=== PATIENT | female | born 1965 | race Caucasian/White ===

== ENCOUNTER 2017-09-30 05:36 | Inpatient (IN) | payer OTHER ==
[2017-09-29 17:10] VITALS: BMI 49.0
[~2017-09-30] VITALS: Ht 160 cm; Wt 125.8 kg
[2017-09-30] VITALS (29 sets, daily range): BP systolic 105–159; BP diastolic 52–91; PULSE 87–103; RESP 13–21; Ht 160 cm; Wt 125.8 kg
[2017-09-30] MEDS: D5-NS + KCL 20 MEQ 1,000 ML IV SCH ×3 (02:30→18:28)
[2017-09-30] MEDS ORDERED: CEFAZOLIN 2 GM/50 ML (PMX) 50 ML IVPB SCH (06:00)
[2017-09-30] MEDS ORDERED: Metronidazole 500 MG in NS 100 ML IVPB SCH (06:00)
[2017-09-30] MEDS ORDERED: LOSA25TA5 PO (07:00)
[2017-09-30] MEDS ORDERED: PANT40TA4 PO (07:00)
[2017-09-30] MEDS ORDERED: BECL8.7H NASAL (07:00)
[2017-09-30] MEDS ORDERED: DULO60CA6 PO (07:00)
[2017-09-30] MEDS ORDERED: FERR325T5 PO (07:00)
[2017-09-30] MEDS ORDERED: AMIT75TA2 PO (07:00)
[2017-09-30] MEDS ORDERED: GABA300S PO (07:00)
[2017-09-30] MEDS ORDERED: GABA300C16 PO (07:00)
[2017-09-30] MEDS ORDERED: MELO7.5O PO (07:00)
[2017-09-30] MEDS ORDERED: TRAZ300T15 PO (07:00)
[2017-09-30] MEDS ORDERED: ALBU18HF INHALATION (07:00)
[2017-09-30] MEDS ORDERED: METHYLENE BLUE 1% 10 ML INJ ONE (07:02)
[2017-09-30] MEDS ORDERED: THROMBIN 5000 UNIT VIAL ONE (07:02)
[2017-09-30] MEDS ORDERED: VASOPRESSIN 20 UNITS INJ ONE (07:02)
[2017-09-30] MEDS ORDERED: MIDAZOLAM 1 MG/ML 2 ML INJ ONE (08:33)
[2017-09-30] MEDS ORDERED: LIDOCAINE 2% (SDV) 5 ML INJ ONE (08:33)
[2017-09-30] MEDS ORDERED: PROPOFOL 20 ML ONE ×2 (08:33→09:48)
[2017-09-30] MEDS ORDERED: SUCCINYLCHOLINE CHLORIDE 100 MG/5 ML SYG IV ONE (08:34)
[2017-09-30] MEDS ORDERED: FENTAnyl 50 MCG/ML VIAL ONE (08:34)
[2017-09-30] MEDS ORDERED: ROCURONIUM 50 MG INJ ONE ×2 (08:34→09:27)
[2017-09-30] MEDS ORDERED: morphine SULFATE/PF (10 MG/10 ML) INJ ONE (08:36)
[2017-09-30] MEDS ORDERED: metroNIDAZOLE 500 MG/NS (PMX) 100 ML IVPB ONE (08:53)
[2017-09-30] MEDS ORDERED: CEFAZOLIN 1 GM INJ ONE (08:53)
[2017-09-30] MEDS ORDERED: PHENYLephrine (100 MCG/ML) 5ML SYG ONE (09:00)
[2017-09-30] MEDS ORDERED: ONDANSETRON 4 MG INJ ONE ×2 (09:26→12:38)
[2017-09-30] MEDS ORDERED: DEXAMETHASONE 4 MG/ML 1 ML INJ ONE (09:26)
[2017-09-30] MEDS ORDERED: FAMOTIDINE 20 MG INJ ONE (09:26)
[2017-09-30] MEDS ORDERED: EPHEDrine SULFATE 50 MG/5 ML SYG ONE (09:48)
[2017-09-30] MEDS ORDERED: GLYCOPYRROLATE 0.4 MG INJ ONE (11:38)
[2017-09-30] MEDS ORDERED: NEOSTIGMINE 3 MG/3 ML SYRINGE ONE ×2 (11:38→11:42)
[2017-09-30] MEDS ORDERED: PROCHLORPERAZINE 10 MG INJ IV PRN (12:30)
[2017-09-30] MEDS ORDERED: MEPERIDINE 25 MG INJ IV PRN (12:30)
[2017-09-30] MEDS ORDERED: HYDROmorphONE (0.2 MG/ML) 10ML SYG IV PRN ×3 (12:30)
[2017-09-30] MEDS ORDERED: NALBUPHINE HCL (10 MG/1 ML) INJ IV PRN (12:30)
[2017-09-30] MEDS ORDERED: FENTAnyl 50 MCG/ML VIAL IV PRN (12:30)
[2017-09-30] MEDS ORDERED: CEFAZOLIN 1 GM in SOD CHLORIDE 0.9% 100 ML IVPB SCH (12:30)
[2017-09-30] MEDS ORDERED: NALOXONE (0.4 MG/ML) INJ IV PRN (12:30)
[2017-09-30] MEDS ORDERED: hydrALAzine 20 MG INJ IV PRN ×2 (12:30→14:30)
[2017-09-30] MEDS ORDERED: LABETALOL HCL 20MG INJ IV PRN (12:30)
[2017-09-30] MEDS ORDERED: HYDROmorphONE 0.5 MG/0.5 ML SYG IV PRN (12:30)
[2017-09-30] MEDS ORDERED: ONDANSETRON 4 MG INJ IV PRN ×2 (12:30)
[2017-09-30] MEDS ORDERED: DIPHENHYDRAMINE 50 MG INJ IV PRN ×3 (12:30→21:00)
--- NOTE | 2017-09-30 12:31 | HPN ---
Date/Time of Note Date/Time of Note DATE: 09/30/17 TIME: 12:31 Interval H&P Admission Note Pt. seen H&P reviewed: No system changes PEYTON GOMEZ MD Sep 30, 2017 12:31
--- NOTE | 2017-09-30 12:34 | SIPON ---
Date/Time of Note Date/Time of Note DATE: 09/30/17 TIME: 12:31 Operative Report Preoperative Diagnosis adnexal mass and fibroids Postoperative Diagnosis same path pending Operation/Procedure Performed supracervical hyst BSO UD and morcellation Surgeon see signature line financial services assistant DUSTIN Scott Anesthesia: other Estimated blood loss: 10 - 50 ml's Transfusion Required none Specimen multiple Grafts/Implants none Complications none PEYTON GOMEZ MD Sep 30, 2017 12:34
--- NOTE | 2017-09-30 12:34 | SIPON ---
Date/Time of Note Date/Time of Note DATE: 09/30/17 TIME: 12:31 Operative Report Preoperative Diagnosis adnexal mass and fibroids Postoperative Diagnosis same path pending Operation/Procedure Performed supracervical hyst BSO UD and morcellation Surgeon see signature line ice cream freezer assistant DUSTIN Scott Anesthesia: other Estimated blood loss: 10 - 50 ml's Transfusion Required none Specimen multiple Grafts/Implants none Complications none PEYTON GOMEZ MD Sep 30, 2017 12:34
--- NOTE | 2017-09-30 12:34 | SIPON ---
Date/Time of Note Date/Time of Note DATE: 09/30/17 TIME: 12:31 Operative Report Preoperative Diagnosis adnexal mass and fibroids Postoperative Diagnosis same path pending Operation/Procedure Performed supracervical hyst BSO UD and morcellation Surgeon see signature line psychiatric technician assistant DUSTIN Scott Anesthesia: other Estimated blood loss: 10 - 50 ml's Transfusion Required none Specimen multiple Grafts/Implants none Complications none PEYTON GOMEZ MD Sep 30, 2017 12:34
[2017-09-30] MEDS ORDERED: MEPERIDINE 25 MG INJ ONE (12:38)
[2017-09-30] MEDS ORDERED: HYDROmorphONE (0.2 MG/ML) 10ML SYG IV ONE (12:38)
[2017-09-30] MEDS: metroNIDAZOLE 500 MG/NS (PMX) 100 ML IVPB SCH ×2 (14:14→22:03)
[2017-09-30] MEDS: CEFAZOLIN 1 GM/50 ML (PMX) 50 ML IVPB SCH ×2 (14:14→21:19)
[2017-09-30] MEDS: HYDROmorphONE 0.5 MG/0.5 ML SYG IV PRN ×2 (14:53→17:02)
[2017-09-30] MEDS: ALBUTEROL HFA 8 GM INHALER INH SCH ×2 (15:30→21:17)
[2017-09-30] MEDS: POTASSIUM CHLORIDE 10 MEQ in LACTATED RINGER'S 1,000 ML IV SCH (18:11)
[2017-09-30] MEDS: AMITRIPTYLINE 25 MG TAB PO SCH (21:18)
[2017-09-30] MEDS: FAMOTIDINE 20 MG INJ IV SCH (21:18)
[2017-09-30] MEDS: GABAPENTIN 300 MG CAP PO SCH (21:18)
[2017-09-30] MEDS: oxyCODONE 5 MG TAB PO PRN (21:35)
--- NOTE | 2017-09-30 23:21 | HP ---
DATE OF ADMISSION: 09/30/2017 CHIEF COMPLAINT AND HISTORY OF PRESENT ILLNESS: The patient is a 52-year-old female with a history of hypertension, asthma, anxiety and depression. The patient is also morbidly obese. The patient w as seen by Dr. Waters as an outpatient for a pelvic mass. [facility] and underwent a supracervical hysterectomy, bilateral salpingo-oophorectomy and ureteral d issection. The patient, prior to admission, was seen by Dr. Richardson from cardiovascular standpoint and underwent cardiac clearance. The patient's preop evaluation by Dr. Waters indicated that the patient has a gradually increasing pelvic mass which was complex and 4 to 5 cm on the left side and also was noted to have a fibroid with associated lower abdominal pain. The patient denies any chest pain. No shortness of breath. No history of headache. No history of nausea or vomiting. No hist ory of any focal weakness. Other than postoperative pain, the rest of the review of systems are unr emarkable. No recent asthma exacerbation. ALLERGIES: THE PATIENT REPORTED THAT TYLENOL DOES NOT HELP AND IF SHE TAKES NORCO, SHE DOES GET ITC HY WHICH GETS BETTER WITH BENADRYL. THE PATIENT STATES THAT SHE HAS TAKEN OXYCODONE IN THE PAST WIT HOUT ANY REACTION OR SIDE EFFECT. THE PATIENT STATES THAT SHE IS NOT ALLERGIC TO TYLENOL. IT IS JU ST THAT IT IS NOT EFFECTIVE FOR PAIN. PAST SURGICAL HISTORY: The patient is status post x2, status post D and C and appendectom y. SOCIAL HISTORY: No smoking, no alcohol. FAMILY HISTORY: The patient's mother of uterine cancer. MENSTRUAL HISTORY: The patient is postmenopausal. There is no history of postmenopausal bleed. PHYSICAL EXAMINATION: GENERAL: The patient is conscious, awake, alert. VITAL SIGNS: Temperature 98.1, pulse 57, respirations 18, blood pressure 133/59, O2 saturation 98% on 4 liters. HEENT: No eye discharge or redness. Nose and ears normal. Oropharynx clear. NECK: No mass. CHEST: Fairly clear. CARDIOVASCULAR: S1, S2 normal. No murmur. ABDOMEN: The patient is status post recent surgery. EXTREMITIES: No edema. Pedal pulses palpable. SKIN: Without acute rash. NEUROLOGIC: The patient is awake, alert, fairly oriented. LABORATORIES: Labs prior to admission: Urine test negative. Sodium 141, potassium 3.7, BUN 10, creatinine 0.8, glucose 161. Coagulation profile unremarkable. UA unremarkable. WBC 10.4, hemoglobin 12.8, platelets 303. CA 127 is 9. IMPRESSION AND PLAN: 1. Pelvic mass and uterine fibroid, status post supracervical hysterectomy, bilateral salpingo-ooph orectomy and ureteral dissection. Continue postoperative care as per Dr. Waters. 2. Hypertension. Will resume Cozaar. 3. Anxiety and depression. Continue Cymbalta and Elavil. 4. Asthma, stable. Continue Proventil twice a day. 5. The patient also takes Neurontin which she says helps her muscle pain. 6. Will continue to follow her from a medical standpoint. Dictated By: DALY RAMIREZ/CAROLINE Conf#: [id number] DID#: [id number]
[2017-10-01] MEDS: POTASSIUM CHLORIDE 10 MEQ in LACTATED RINGER'S 1,000 ML IV SCH ×3 (01:03→18:26)
[2017-10-01] MEDS: oxyCODONE 5 MG TAB PO PRN ×4 (02:23→16:25)
[2017-10-01] MEDS: CEFAZOLIN 1 GM/50 ML (PMX) 50 ML IVPB SCH (06:40)
[2017-10-01] MEDS: metroNIDAZOLE 500 MG/NS (PMX) 100 ML IVPB SCH (06:40)
[2017-10-01 07:00] VITALS: BP 116/57; RESP 18
[2017-10-01] MEDS: PANTOPRAZOLE (EC) 40 MG TAB PO SCH (07:45)
[2017-10-01] MEDS: GABAPENTIN 300 MG CAP PO SCH ×2 (08:39→20:15)
[2017-10-01] MEDS: DULOXETINE 30 MG CAP DR PO SCH (08:39)
[2017-10-01] MEDS: LOSARTAN 25 MG TAB PO SCH (08:39)
[2017-10-01] MEDS: ALBUTEROL HFA 8 GM INHALER INH SCH ×2 (08:39→20:20)
[2017-10-01] MEDS: FAMOTIDINE 20 MG INJ IV SCH (08:39)
[2017-10-01] MEDS ORDERED: BECLOMETHASONE DIPROPIONATE NASAL SCH (09:00)
[2017-10-01] MEDS: KETOROLAC 30 MG INJ IV PRN ×2 (13:33→22:15)
[2017-10-01 14:00] VITALS: BP 138/94; RESP 18
--- NOTE | 2017-10-01 18:10 | PN ---
Date/Time of Note Date/Time of Note DATE: 10/01/17 TIME: 18:06 Assessment/Plan VTE Prophylaxis VTE Prophylaxis Intervention: SCD's Lines/Catheters IV Catheter Type (from Nrs): Peripheral IV Urinary Cath still in place: Yes Reason Cath still needed: urinary retention Assessment/Plan Chief Complaint/Hosp Course Patient's complaints of abdominal pain, current medication last only for a couple of hours, Andrea catheter DC patient is able to void Problems: Assessment/Plan - Pelvic mass and uterine fibroid, status post supracervical hysterectomy, bilateral salpingo-oophorectomy and ureteral dissection. Continue postoperative care as per Dr. Waters. - Hypertension. She is currently normotensive - Anxiety and depression. Continue Cymbalta and Elavil. - Asthma, stable. Continue Proventil twice a day. - Obesity with BMI of 49 Further recommendations based on clinical course. Plan of care discussed with Dr. Garcia. Exam/Review of Systems Vital Signs Vitals Vital Signs Date Time Temp Pulse Resp B/P Pulse Ox O2 Delivery O2 Flow Rate FiO2 10/01/17 14:00 98.2 93 18 138/94 100 09/30/17 20:00 Nasal Cannula 4.0 Intake and Output 09/30/17 09/30/17 10/01/17 15:00 23:00 07:00 Intake Total 2850 ml 350 ml 1300 ml Output Total 225 ml 200 ml 850 ml Balance 2625 ml 150 ml 450 ml Exam Constitutional: alert, obese Head: normocephalic Neck: supple Respiratory: normal air movement Cardiovascular: nl pulses Gastrointestinal: other (Status post surgery), soft Extremities: normal pulses Results Result Diagram: 10/01/17 0431 10/01/17 0431 Results 24 hrs Laboratory Tests Test 10/01/17 04:31 White Blood Count 10.2 Red Blood Count 3.97 L Hemoglobin 10.1 L Hematocrit 34.5 L Mean Corpuscular Volume 86.9 Mean Corpuscular Hemoglobin 25.4 L Mean Corpuscular Hemoglobin Concent 29.3 L Red Cell Distribution Width 15.0 H Platelet Count 276 Mean Platelet Volume 9.5 Neutrophils % 70.4 Lymphocytes % 19.7 Monocytes % 8.2 Eosinophils % 1.1 Basophils % 0.2 Nucleated Red Blood Cells % 0.0 Neutrophils # 7.2 Lymphocytes # 2.0 Monocytes # 0.8 Eosinophils # 0.1 Basophils # 0.0 Nucleated Red Blood Cells # 0.0 Prothrombin Time 13.9 Prothrombin Time Ratio 1.1 INR International Normalized Ratio 1.07 Sodium Level 142 Potassium Level 4.7 Chloride Level 101 Carbon Dioxide Level 32 H Anion Gap 14 Blood Urea Nitrogen 10 Creatinine 0.78 Glucose Level 106 # Calcium Level 8.0 L Medications Medications Current Medications Potassium Chloride/Dextrose/ Sod Cl (D5-NS + KCl 20 Meq) 1,000 ml @ 100 mls/hr Q10H IV ; Start 09/29/17 at 16:30; Status Future Hold Ondansetron HCl 4 mg 4 mg Q6H PRN IV NAUSEA AND/OR VOMITING; Start 09/30/17 at 12:30 Potassium Chloride/Lactated Ringer's (KCl/Lr) 1,005 ml @ 100 mls/hr Q10H3M IV Last administered on 10/01/17 05:17; Admin Dose 100 MLS/HR; Start 09/30/17 at 15:00 Albuterol (Ventolin Hfa) 2 puff BID INH Last administered on 10/01/17 08:39; Admin Dose 2 PUFF; Start 09/30/17 at 15:30 Amitriptyline HCl (Elavil) 75 mg QHS PO Last administered on 09/30/17 21:18; Admin Dose 75 MG; Start 09/30/17 at 21:00 Duloxetine HCl (Cymbalta) 60 mg DAILY PO Last administered on 10/01/17 08:39; Admin Dose 60 MG; Start 10/01/17 at 09:00 Gabapentin (Neurontin) 300 mg BID PO Last administered on 10/01/17 08:39; Admin Dose 300 MG; Start 09/30/17 at 21:00 Losartan Potassium (Cozaar) 25 mg DAILY PO Last administered on 10/01/17 08:39 ; Admin Dose 25 MG; Start 10/01/17 at 09:00 Hydralazine HCl (Apresoline) 10 mg Q4H PRN IV SBP>160, DBP>95; Start 09/30/17 at 14:30 Oxycodone HCl (Roxicodone) 10 mg Q4H PRN PO PAIN Last administered on 16:25; Admin Dose 10 MG; Start 09/30/17 at 15:00 Diphenhydramine HCl (Benadryl) 25 mg Q6H PRN IV ITCHING Last administered on 21:18; Admin Dose 25 MG; Start 09/30/17 at 21:00 Ketorolac Tromethamine (Toradol) 30 mg Q6H PRN IV PAIN Last administered on 13:33; Admin Dose 30 MG; Start 10/01/17 at 13:30; Stop 10/04/17 at 13:29 HAKEEM LINDSEY Oct 01, 2017 18:10
[2017-10-01] MEDS: morphine 2 MG INJ IV PRN (19:44)
[2017-10-01] MEDS: AMITRIPTYLINE 25 MG TAB PO SCH (20:15)
[2017-10-02] MEDS: morphine 2 MG INJ IV PRN ×3 (02:35→22:51)
[2017-10-02] MEDS: KETOROLAC 30 MG INJ IV PRN ×3 (04:59→20:10)
[2017-10-02] MEDS: PANTOPRAZOLE (EC) 40 MG TAB PO SCH (06:49)
[2017-10-02 07:53] VITALS: BP 167/76; RESP 16
[2017-10-02] MEDS: POTASSIUM CHLORIDE 10 MEQ in LACTATED RINGER'S 1,000 ML IV SCH ×2 (08:00→20:17)
[2017-10-02] MEDS: GABAPENTIN 300 MG CAP PO SCH ×2 (09:01→20:19)
[2017-10-02] MEDS: LOSARTAN 25 MG TAB PO SCH (09:01)
[2017-10-02] MEDS: DULOXETINE 30 MG CAP DR PO SCH (09:01)
[2017-10-02] MEDS: ALBUTEROL HFA 8 GM INHALER INH SCH ×2 (09:04→20:19)
[2017-10-02] MEDS: oxyCODONE 5 MG TAB PO PRN ×2 (09:31→16:55)
[2017-10-02 14:24] VITALS: BP 176/89; RESP 18
--- NOTE | 2017-10-02 16:05 | PN ---
Date/Time of Note Date/Time of Note DATE: 10/02/17 TIME: 15:59 Assessment/Plan VTE Prophylaxis VTE Prophylaxis Intervention: SCD's Lines/Catheters IV Catheter Type (from Nrs): Peripheral IV Urinary Cath still in place: No Assessment/Plan Chief Complaint/Hosp Course menorrhagia and mass Problems: Assessment/Plan A- doing well with recovery P- mobilize and adv diet Subjective 24 Hr Interval Summary Free Text/Dictation + flatus and some pain. Exam/Review of Systems Vital Signs Vitals Vital Signs Date Time Temp Pulse Resp B/P Pulse Ox O2 Delivery O2 Flow Rate FiO2 10/02/17 14:24 97.8 91 18 176/89 99 10/01/17 22:04 Nasal Cannula 2.0 Intake and Output 10/01/17 10/01/17 10/02/17 15:00 23:00 07:00 Intake Total 150 ml 2040 ml 1750 ml Output Total 1400 ml 1350 ml Balance 150 ml 640 ml 400 ml Exam Resp- clear CVS- nsr Abd- soft, very obese and mildly obese Results Result Diagram: 10/02/17 0453 10/02/17 0453 Results 24 hrs Laboratory Tests Test 10/02/17 04:53 White Blood Count 8.0 # Red Blood Count 4.13 L Hemoglobin 10.5 L Hematocrit 36.3 L Mean Corpuscular Volume 87.9 Mean Corpuscular Hemoglobin 25.4 L Mean Corpuscular Hemoglobin Concent 28.9 L Red Cell Distribution Width 15.1 H Platelet Count 270 Mean Platelet Volume 9.7 Neutrophils % 53.0 Lymphocytes % 31.8 Monocytes % 8.5 Eosinophils % 5.8 Basophils % 0.3 Nucleated Red Blood Cells % 0.0 Neutrophils # 4.3 Lymphocytes # 2.5 Monocytes # 0.7 Eosinophils # 0.5 Basophils # 0.0 Nucleated Red Blood Cells # 0.0 Sodium Level 142 Potassium Level 3.9 Chloride Level 98 Carbon Dioxide Level 36 H Anion Gap 12 Blood Urea Nitrogen 6 L Creatinine 0.70 Glucose Level 98 Calcium Level 8.0 L Medications Medications Current Medications Potassium Chloride/Dextrose/ Sod Cl (D5-NS + KCl 20 Meq) 1,000 ml @ 100 mls/hr Q10H IV ; Start 09/29/17 at 16:30; Status Future Hold Ondansetron HCl 4 mg 4 mg Q6H PRN IV NAUSEA AND/OR VOMITING; Start 09/30/17 at 12:30 Potassium Chloride/Lactated Ringer's (KCl/Lr) 1,005 ml @ 50 mls/hr Q20H6M IV Last administered on 10/01/17 18:26; Admin Dose 100 MLS/HR; Start 09/30/17 at 15:00 Albuterol (Ventolin Hfa) 2 puff BID INH Last administered on 10/02/17 09:04; Admin Dose 2 PUFF; Start 09/30/17 at 15:30 Amitriptyline HCl (Elavil) 75 mg QHS PO Last administered on 10/01/17 20:15; Admin Dose 75 MG; Start 09/30/17 at 21:00 Duloxetine HCl (Cymbalta) 60 mg DAILY PO Last administered on 10/02/17 09:01; Admin Dose 60 MG; Start 10/01/17 at 09:00 Gabapentin (Neurontin) 300 mg BID PO Last administered on 10/02/17 09:01; Admin Dose 300 MG; Start 09/30/17 at 21:00 Losartan Potassium (Cozaar) 25 mg DAILY PO Last administered on 10/02/17 09:01 ; Admin Dose 25 MG; Start 10/01/17 at 09:00 Hydralazine HCl (Apresoline) 10 mg Q4H PRN IV SBP>160, DBP>95; Start 09/30/17 at 14:30 Oxycodone HCl (Roxicodone) 10 mg Q4H PRN PO PAIN Last administered on 09:31; Admin Dose 10 MG; Start 09/30/17 at 15:00 Diphenhydramine HCl (Benadryl) 25 mg Q6H PRN IV ITCHING Last administered on 21:18; Admin Dose 25 MG; Start 09/30/17 at 21:00 Ketorolac Tromethamine (Toradol) 30 mg Q6H PRN IV PAIN Last administered on 14:08; Admin Dose 30 MG; Start 10/01/17 at 13:30; Stop 10/04/17 at 13:29 Morphine Sulfate (morphine) 2 mg Q3 PRN IV PAIN LEVEL 6-10 Last administered on 10/02/17 11:38; Admin Dose 2 MG; Start 10/01/17 at 18:30 PEYTON GOMEZ MD Oct 02, 2017 16:05
[2017-10-02 20:00] VITALS: BP 137/81; RESP 18
[2017-10-02] MEDS: AMITRIPTYLINE 25 MG TAB PO SCH (20:19)
--- NOTE | 2017-10-02 21:55 | OPR ---
Date/Time of Note Date/Time of Note DATE: 10/02/17 TIME: 21:53 Operative Report Free Text/Dictation OPERATIVE REPORT [facility] Name: Barbara Palomo Medical Date: 09/30/17 Preoperative Diagnosis: 1- Uterine fibroids 2- Pelvic mass Postoperative Diagnosis: 1- Postmenopausal mass 2- Ureteral stricture 3- Fibroids Procedures: 1- Laparoscopic subtotal hysterectomy with bilateral salpingoophorectomy 2- Left ureteral dissection with repositioning Surgeon: Dr. Waters [employer] Protection Maintainer: Paula De Luna Anesthesia: General with regional Indications for Surgery The patient was a 52- year old female with a symptomatic pelvic mass consistent with fibroids and/or left adnexal mass. She selected a LSH with BSO and staging if needed after considering all risks and benefits. Findings and Summary The patient was laparoscoped and found to have a some hypervascular fibroids and a left adnexal mass that were distorting the retroperitoneal anatomy significantly. Name: Barbara Palomo Medical Therefore it was necessary to open the retroperitoneum predominantly on the left and dissect and reposition the ureters for the purposes of accessing the IP -ligament each side. Due to additional anatomic distortion by the enlarged uterus and hypervascualrity the uterine arteries were clipped and desiccated bilaterally immediately distal to the branching of the hypogastrics as a separate procedure with additional dissection as well. The laparoscopic supracervical hysterectomy was then completed with morcellation without incident. Procedure: After being prepped and draped in the usual manner an EEA-sizer and pneumo- occluder were inserted vaginally to define anatomy and assure pneumoperitoneum in the vagina. A 5-millimeter trocar was then placed immediately cephlad to the umbilicus without incident. Subsequently, we insufflated and placed two 5- millimeter trocars laterally and a 5-millimeter trocar suprapubically. At this time any pelvic adhesions were lysed with sharp dissection. Subsequently we explored and noted a uterus with fibroids approximately 10-12 wk size and possible old adenomyosis with hypervascularity, all distorting the retroperitoneal anatomy significantly, and necessitating a ureteral dissection on the left with repositioning due to impossibility to address the uterine artery primarily and a left adnexal mass densely adherent to the sidewall. Initially a corkscrew was placed in the fibroids and secured into place with a Satya Arm after which the right round ligament was transected with the Gyrus bipolar cutting forceps and the retroperitoneal spaced opened parallel to the IP ligament and laterally with the same devise and Omni. The ureter was identified and as well as unsuspected stricture due to scaring, required somw dissection and repositioning. The ureter was bluntly dissected away from the uterus with and broad ligament with an Omni, and carefully repositioned lateral to the broad ligament. Because of some oozing and because the anatomy of the uterus resulted in displacement of the vessels laterally it mandated that we isolate the uterine artery and vein adjacent to the ureter that was lateralized to the level of the hypogastric artery using the endo-dissector and Omni for hemostasis with the [facility]ter visualized. Therefore in this case the uterine artery was hemoclipped immediately distal to the branching of the hypogastric and at the bifurcation of the hypogastric, proximal to the branching of the uterine and obliterated umbilical; salvaging both observed superior and inferior vesicle while controlling Omni and Thunderbeat bipolar cutting forceps , and attention as addressed to the contralateral side. Subsequently, the corkscrew was reinserted and secured into place with a Satya Arm and the left round ligament was transected with a Gyrus bipolar cutting forceps and the retroperitoneum opened parallel to the infundibulo-pelvic (IP) ligament with an Omni. The ureteral dissection with repositioning was undertaken. The ureter was dissected away from the peritoneum with adjacent uterus with adnexia and repositioned with care using the endo-dissector and Omni and Gyrus bipolar cutting forceps bluntly, with the adnexal mass densely adherent to the sidewall , again with the dissection being required due to some distortion of the retroperitoneum by the uterus with fibroids and the adherent mass. This process was carried out throughout the ureteral length in the pelvis and it peristalsed normally once repositioned. Again, because of hypervascularity and because the anatomy of the uterus resulted in displacement of the vessels laterally it mandated that we isolate the uterine artery and vein adjacent to the ureter that was lateralized to the level of the hypogastric artery using the endo-dissector and Omni for hemostasis with the previously dissected ureter visualized. Therefore in this case the uterine artery was hemoclipped immediately distal to the branching of the hypogastric and at the bifurcation of the hypogastric, proximal to the branching of the uterine and obliterated umbilical; salvaging both observed superior and inferior vesicle while controlling the entire uterine with associated collateral branches. At this time the left IP-ligament was desiccated and transected with the Gyrus bipolar cutting forceps and Thunderbeat. We then used a cork screw manipulatorplaced through the 12-mm suprapubic trocar to manipulate the uterus allowing development or the bladder flap uneventfully with the Omni and blunt dissection. The right uterine artery was transected with a Thunderbeat perpendicular to the distal lower uterine segment and the Cardinal ligament and utero-sacral ligament were both transected with a Omni and Thunderbeat Name: Barbara Palomo [facility] parallel to the lower uterine segment and cervix via the contralateral trocar site. An identical series of steps were taken on the left side. Hence, the uterus was removed from the cervix with the Omni and hemostasis confirmed. The cervix and the endocervical canal were thoroughly ablated with the Omni for hemostasis. The upper 5-millimeter trocar was enlarged and the adnexas removed separately after which the after which the 3-4 cm minilaparotomy extension was accomplished and large Olympus sac was placed for the uterus and it was removed without incident with morcellator after removed with morcellation. After irrigating and assuring hemostasis the minilaparotomy was closed with interrupted 1-vicryl suture with endo-close and all skin closed with 4-0 Monocryl suture. The EBL was 100 cc and the patient tolerated the procedure well and left the OR in good condition. Peyton Waters M.D. Preoperative Diagnosis as above Postoperative Diagnosis as above Operation/Procedure Performed as above Surgeon see signature line [employer] Protection Maintainer as above Anesthesia Type: other Estimated Blood Loss: 50 - 100 ml's Transfusion none Specimen multiple Grafts/Implants none Tubes/Drains as above Complications none Procedure Description as above PEYTON WATERS MD Oct 02, 2017 21:55
--- NOTE | 2017-10-03 01:38 | PN ---
DATE: 10/02/2017 SUBJECTIVE: Followup on supracervical hysterectomy and bilateral salpingo-oophorectomy, hypertensio n, asthma, anxiety and depression. The patient is passing gas. Postoperative pain has improved. D enies any chest pain or wheezing. No reported vomiting. PHYSICAL EXAMINATION: GENERAL: The patient is conscious, awake, alert. VITAL SIGNS: This morning, temperature 98.2, pulse 92, respirations 16, blood pressure 167/76, O2 s aturation 100%. HEENT: No eye discharge or redness. Extraocular movement intact. Oropharynx clear. NECK: Supple. No mass. CHEST: Fairly clear. No use of accessory muscles. CARDIOVASCULAR: S1, S2 normal. No murmur. ABDOMEN: Soft. EXTREMITIES: No edema. NEUROLOGIC: The patient is awake, alert with no gross focal deficit. LABORATORY DATA: Done this morning, WBC 8, hemoglobin 10.5, platelets 270. Chemistry: Sodium 142, potassium 3.9. IMPRESSION: 1. Pelvic mass, status post total abdominal hysterectomy and bilateral salpingo-oophorectomy that c christiano back negative for any evidence of malignancy. 2. Hypertension. Continue Losartan and IV hydralazine. 3. Asthma. Continue albuterol puff. 4. Anxiety and depression, stable with Elavil and Cymbalta. Dictated By: DALY RAMIREZ/CAROLINE Conf#: [id number] DID#: [id number]
[2017-10-03 02:00] VITALS: BP 140/63; RESP 19
[2017-10-03] MEDS: KETOROLAC 30 MG INJ IV PRN ×3 (02:20→15:42)
[2017-10-03] MEDS: PANTOPRAZOLE (EC) 40 MG TAB PO SCH (06:32)
[2017-10-03] MEDS: morphine 2 MG INJ IV PRN ×2 (06:39→11:27)
[2017-10-03 08:00] VITALS: BP 112/60; PULSE 80; RESP 18
[2017-10-03] MEDS: DULOXETINE 30 MG CAP DR PO SCH (08:55)
[2017-10-03] MEDS: LOSARTAN 25 MG TAB PO SCH (08:55)
[2017-10-03] MEDS: GABAPENTIN 300 MG CAP PO SCH (08:55)
[2017-10-03] MEDS: oxyCODONE 5 MG TAB PO PRN ×2 (08:56→13:18)
[2017-10-03] MEDS: ALBUTEROL HFA 8 GM INHALER INH SCH (09:03)
[2017-10-03] MEDS: POTASSIUM CHLORIDE 10 MEQ in LACTATED RINGER'S 1,000 ML IV SCH (15:21)
[2017-10-03] MEDS ORDERED: SENN-36 PO (16:00)
[2017-10-03] MEDS ORDERED: OXYC-279 PO (16:00)
--- NOTE | 2017-10-03 16:01 | DS ---
Date/Time of Note Date/Time of Note DATE: 10/03/17 TIME: 16:01 Discharge Summary Admission/Discharge Info Admit Date/Time Sep 30, 2017 at 05:36 Discharge Date/Time Patient Condition: Stable (-) Hospital Course menorrhagia and mass Home Meds Active Scripts Sennosides* (Senokot*) 8.6 Mg Tablet, 1 TAB PO BID, #30 TAB Prov:JEOVANYNUMARIANNE 10/03/17 Oxycodone HCl/Acetaminophen (Percocet 5-325 mg Tablet) 1 Each Tablet, 2 EACH PO Q6, #30 TAB Prov:SADEORAMARIANNE 10/03/17 Oxycodone HCl/Acetaminophen (Percocet 5-325 mg Tablet) 1 Each Tablet, 1 EACH PO Q6, #30 TAB Prov:JEOVANYNUMARIANNE 10/03/17 Reported Medications Gabapentin (GABAPENTIN) 300 Mg/6 Ml Solution, 600 MG PO QHS 09/30/17 Albuterol Sulfate* (Ventolin HFA*) 18 Gm Hfa.aer.ad, 2 PUFF INHALATION BID, #1 INHALER 09/30/17 Beclomethasone Dipropionate (QNASL) 8.7 Gm Hfa.aer.ad, 2 SPRAYS NASAL DAILY, #1 BOTTLE PER NOSTRIL 09/30/17 Losartan Potassium* (Losartan Potassium*) 25 Mg Tablet, 25 MG PO DAILY, TAB 09/30/17 Meloxicam* (Meloxicam*) 7.5 Mg/5 Ml Oral.susp, 7.5 MG PO DAILY, #150 ML 09/30/17 Trazodone Hcl* (Trazodone Hcl*) 300 Mg Tablet, 400 MG PO QHS, #30 TAB 09/30/17 Ferrous Sulfate (Ferrous Sulfate) 325 Mg Tablet.dr, 325 MG PO 09/30/17 Pantoprazole* (Pantoprazole*) 40 Mg Tablet.dr, 40 MG PO AC BREAKFAST, TAB 09/30/17 Gabapentin* (Gabapentin*) 300 Mg Capsule, 300 MG PO BID, #60 CAP 09/30/17 Duloxetine Hcl* (Cymbalta*) 60 Mg Capsule.dr, 60 MG PO DAILY, CAP 09/30/17 Amitriptyline Hcl* (Amitriptyline Hcl*) 75 Mg Tablet, 75 MG PO QHS, #30 TAB 09/30/17 Primary Care Provider [facility] Time spent on discharge: < 30 minutes MARIANNE RECINOS Oct 03, 2017 16:01
--- NOTE | 2017-10-03 17:59 | PN ---
Date/Time of Note Date/Time of Note DATE: 10/03/17 TIME: 17:54 Assessment/Plan VTE Prophylaxis VTE Prophylaxis Intervention: SCD's Lines/Catheters IV Catheter Type (from Nrs): Peripheral IV Urinary Cath still in place: No Assessment/Plan Chief Complaint/Hosp Course menorrhagia and mass Problems: Assessment/Plan A- improved P- d/c when OK with IM Subjective 24 Hr Interval Summary Free Text/Dictation + flatus and natalia diet better Exam/Review of Systems Vital Signs Vitals Vital Signs Date Time Temp Pulse Resp B/P Pulse Ox O2 Delivery O2 Flow Rate FiO2 10/03/17 08:00 98.2 80 18 112/60 99 Room Air 10/01/17 22:04 2.0 Intake and Output 10/02/17 10/02/17 10/03/17 15:00 23:00 07:00 Intake Total 1355 ml 1350 ml Output Total 900 ml 1600 ml Balance 455 ml -250 ml Exam Resp- clear CVS- NSR Abd- soft, nt clean Ext- NT noedema Constitutional: alert, oriented, well developed Psych: nl mood/affect, no complaints Head: atraumatic, normocephalic Eyes: EOMI, PERRL, nl conjunctiva, nl lids, nl sclera ENMT: nl external ears & nose, nl lips & teeth, nl nasal mucosa & septum Neck: non-tender, supple Respiratory: clear to auscultation, normal air movement Cardiovascular: nl pulses, regular rate and rhythm Gastrointestinal: nl liver, spleen, non-tender, soft Musculoskeletal: nl extremities to inspection, nl gait and stance Extremities: normal pulses Neurological: RELATIONS SPECIALIST II-XII intact, nl mental status, nl speech, nl strength Skin: nl turgor, No rash or lesions Lymph: nl lymph nodes Results Result Diagram: 10/02/1745210/02/17 045 Medications Medications Current Medications Potassium Chloride/Dextrose/ Sod Cl (D5-NS + KCl 20 Meq) 1,000 ml @ 100 mls/hr Q10H IV ; Start 09/29/17 at 16:30; Status Future Hold Ondansetron HCl 4 mg 4 mg Q6H PRN IV NAUSEA AND/OR VOMITING Last administered on 10/03/17t 16:35; Admin Dose 4 MG; Start 09/30/17 at 12:30 Potassium Chloride/Lactated Ringer's (KCl/Lr) 1,005 ml @ 50 mls/hr Q20H6M IV Last administered on 10/02/17 20:17; Admin Dose 50 MLS/HR; Start 09/30/17 at 15 :00 Albuterol (Ventolin Hfa) 2 puff BID INH Last administered on 10/03/17 09:03; Admin Dose 2 PUFF; Start 09/30/17 at 15:30 Amitriptyline HCl (Elavil) 75 mg QHS PO Last administered on 10/02/17 20:19; Admin Dose 75 MG; Start 09/30/17 at 21:00 Duloxetine HCl (Cymbalta) 60 mg DAILY PO Last administered on 10/03/17 08:55; Admin Dose 60 MG; Start 10/01/17 at 09:00 Gabapentin (Neurontin) 300 mg BID PO Last administered on 10/03/17 08:55; Admin Dose 300 MG; Start 09/30/17 at 21:00 Losartan Potassium (Cozaar) 25 mg DAILY PO Last administered on 10/03/17 08:55 ; Admin Dose 25 MG; Start 10/01/17 at 09:00 Hydralazine HCl (Apresoline) 10 mg Q4H PRN IV SBP>160, DBP>95; Start 09/30/17 at 14:30 Oxycodone HCl (Roxicodone) 10 mg Q4H PRN PO PAIN Last administered on 13:18; Admin Dose 10 MG; Start 09/30/17 at 15:00 Diphenhydramine HCl (Benadryl) 25 mg Q6H PRN IV ITCHING Last administered on 21:18; Admin Dose 25 MG; Start 09/30/17 at 21:00 Ketorolac Tromethamine (Toradol) 30 mg Q6H PRN IV PAIN Last administered on 15:42; Admin Dose 30 MG; Start 10/01/17 at 13:30; Stop 10/04/17 at 13:29 Morphine Sulfate (morphine) 2 mg Q3 PRN IV PAIN LEVEL 6-10 Last administered on 10/03/17 11:27; Admin Dose 2 MG; Start 10/01/17 at 18:30 PEYTON GOMEZ MD Oct 03, 2017 17:59
== END 2017-10-03 18:15 | disposition home or self-care (01) | DRG 742 ==
LOC: REC 05:36 → MS1 13:41
PROC: 0UT24ZZ Resection of Bilateral Ovaries, Percutaneous Endoscopic Approach (ICD-10-PCS; 2017-09-30)
PROC: 0TS74ZZ Reposition Left Ureter, Percutaneous Endoscopic Approach (ICD-10-PCS; 2017-09-30)
PROC: 0UB74ZZ Excision of Bilateral Fallopian Tubes, Percutaneous Endoscopic Approach (ICD-10-PCS; 2017-09-30)
PROC: 0UT94ZL Resection of Uterus, Supracervical, Percutaneous Endoscopic Approach (ICD-10-PCS; principal; 2017-09-30 07:30)
DX: D25.9 Leiomyoma of uterus, unspecified (principal); Z68.42 Body mass index [BMI] 45.0-49.9, adult; I10 Essential (primary) hypertension; R19.09 Other intra-abdominal and pelvic swelling, mass and lump; N92.0 Excessive and frequent menstruation with regular cycle; E66.01 Morbid (severe) obesity due to excess calories; J45.909 Unspecified asthma, uncomplicated; R10.30 Lower abdominal pain, unspecified; Z78.0 Asymptomatic menopausal state; N13.5 Crossing vessel and stricture of ureter without hydronephrosis
CPT/HCPCS: 80048; 84703; 85025; 85610; 86850; 86900; 86901; 86920; 87086; 88305; J0690; J1100; J1170; J1200; J1885; J2175; J2250; J2270; J2274; J2370; J2405; J2710; J3010; J3480; J7120

== ENCOUNTER 2017-10-25 16:04 | Emergency (ER) | payer OTHER ==
[~2017-10-25] VITALS: Ht 160 cm; Wt 126.7 kg
[~2017-10-25 16:04] MED LIST: ALBU18HF INHALATION; AMIT75TA2 PO; BECL8.7H NASAL; DULO60CA6 PO; FERR325T5 PO; GABA300C16 PO; GABA300S PO; LOSA25TA5 PO; MELO7.5O PO; OXYC-279 PO; PANT40TA4 PO; SENN-36 PO; TRAZ300T15 PO
[2017-10-25 16:06] VITALS: Ht 160 cm; Wt 126.7 kg
[2017-10-25] MEDS ORDERED: ONDANSETRON 4 MG INJ IV STA (16:56)
[2017-10-25] MEDS ORDERED: morphine 4 MG/ML VIAL IV STA (16:56)
--- NOTE | 2017-10-25 17:03 | ERD ---
ER Documentation Chief Complaint Chief Complaint pelvic pain radiating to the back x 6 days HPI 52-year-old female who presents emergency department for pelvic pain that radiates to her back for 6 days. Complains of vaginal bright red spotting once today. Change her pad once in the past 24 hours. Feels nauseous but no vomiting. Had a laparoscopic hysterectomy here in [facility] last September 30, [address] Nixon. [place]. Also complains of difficulty walking due to her abdominal pain. A0. Denies headache, dizziness, blurred vision, neck pain, shoulder pain, chest pain , difficulty breathing when lying flat, vomiting, constipation, dysuria, loss of bowel and bladder control, vaginal discharge, recent long travel, recent antibiotic use in the last 3 months, fever, chills, numbness or tingling sensation. ROS All systems reviewed and are negative except as per history of present illness. Medications Home Meds Active Scripts Oxycodone HCl/Acetaminophen (Percocet 10-325 mg Tablet) 1 Each Tablet, 1 EACH PO Q6 Y for PAIN, #15 TAB Prov:ERWINLINDANICCI F 10/25/17 Cephalexin* (Keflex*) 500 Mg Capsule, 500 MG PO QID for 5 Days, CAP Prov:PASILABAN,JEANNINEAR F 10/25/17 Sennosides* (Senokot*) 8.6 Mg Tablet, 1 TAB PO BID, #30 TAB Prov:MARIANNE RECINOS 10/03/17 Oxycodone HCl/Acetaminophen (Percocet 5-325 mg Tablet) 1 Each Tablet, 2 EACH PO Q6, #30 TAB Prov:MARIANNE RECINOS 10/03/17 Oxycodone HCl/Acetaminophen (Percocet 5-325 mg Tablet) 1 Each Tablet, 1 EACH PO Q6, #30 TAB Prov:MARIANNE RECINOS 10/03/17 Reported Medications Gabapentin (GABAPENTIN) 300 Mg/6 Ml Solution, 600 MG PO QHS 09/30/17 Albuterol Sulfate* (Ventolin HFA*) 18 Gm Hfa.aer.ad, 2 PUFF INHALATION BID, #1 INHALER 09/30/17 Beclomethasone Dipropionate (QNASL) 8.7 Gm Hfa.aer.ad, 2 SPRAYS NASAL DAILY, #1 BOTTLE PER NOSTRIL 09/30/17 Losartan Potassium* (Losartan Potassium*) 25 Mg Tablet, 25 MG PO DAILY, TAB 09/30/17 Meloxicam* (Meloxicam*) 7.5 Mg/5 Ml Oral.susp, 7.5 MG PO DAILY, #150 ML 09/30/17 Trazodone Hcl* (Trazodone Hcl*) 300 Mg Tablet, 400 MG PO QHS, #30 TAB 09/30/17 Ferrous Sulfate (Ferrous Sulfate) 325 Mg Tablet.dr, 325 MG PO 09/30/17 Pantoprazole* (Pantoprazole*) 40 Mg Tablet.dr, 40 MG PO AC BREAKFAST, TAB 09/30/17 Gabapentin* (Gabapentin*) 300 Mg Capsule, 300 MG PO BID, #60 CAP 09/30/17 Duloxetine Hcl* (Cymbalta*) 60 Mg Capsule.dr, 60 MG PO DAILY, CAP 09/30/17 Amitriptyline Hcl* (Amitriptyline Hcl*) 75 Mg Tablet, 75 MG PO QHS, #30 TAB 09/30/17 Discontinued Scripts Tramadol HCl (Tramadol HCl) 50 Mg Tablet, 50 MG PO Q4 Y for PAIN, #15 TAB Prov:NICCI BEASLEY F 10/25/17 Ibuprofen* (Motrin*) 800 Mg Tab, 800 MG PO Q8 Y for PAIN AND OR ELEVATED TEMP, # 30 TAB Prov:MAXILABANNICCI F 10/25/17 Allergies Allergies: Coded Allergies: acetaminophen (Verified Allergy, Unknown, ITCHING, 08/19/16) hydrocodone (Verified Allergy, Unknown, ITCHING, 08/19/16) PMhx/Soc History of Surgery: Yes (carpal cunel, appendectomy, ovarian cyst csection x2, D&C) Anesthesia Reaction: No Hx Neurological Disorder: No Hx Respiratory Disorders: Yes (asthma) Hx Cardiac Disorders: Yes (HTN) Hx Psychiatric Problems: No Hx Miscellaneous Medical Probl: Yes (obesity) Hx Alcohol Use: Yes (social) Hx Substance Use: No Hx Tobacco Use: No Smoking Status: Never smoker Physical Exam Vitals Vital Signs Date Time Temp Pulse Resp B/P Pulse Ox O2 Delivery O2 Flow Rate FiO2 10/25/17 19:27 136/63 10/25/17 16:06 98.2 105 18 190/83 96 Physical Exam Const: In mild distress due to her pain. Head: Atraumatic Eyes: Normal Conjunctiva ENT: Normal External Ears, Nose and Mouth. Neck: Full range of motion..~ No meningismus. Resp: Clear to auscultation bilaterally Cardio: Regular rate and rhythm, no murmurs Abd: Soft, non distended. Normal bowel sounds. Diffuse abdominal tenderness. 4 laparoscopic surgical sites without dehiscence. Surgical sites appears healed with no redness, induration. No bleeding. No discharge. Skin: No petechiae or rashes. Back: No midline or flank tenderness Ext: No cyanosis, or edema Neur: Awake and alert Psych: Normal Mood and Affect Result Diagram: 10/25/17 17410/25/17 1741 Results 24 hrs Laboratory Tests Test 10/25/17 17:41 White Blood Count 10.810^3/ul Red Blood Count 4.2910^6/ul Hemoglobin 11.2g/dl Hematocrit 36.4% Mean Corpuscular Volume 84.8fl Mean Corpuscular Hemoglobin 26.1pg Mean Corpuscular Hemoglobin Concent 30.8g/dl Red Cell Distribution Width 14.6% Platelet Count 89334^3/UL Mean Platelet Volume 9.6fl Neutrophils % 60.1% Lymphocytes % 29.0% Monocytes % 7.4% Eosinophils % 2.6% Basophils % 0.2% Nucleated Red Blood Cells % 0.0/100WBC Neutrophils # 6.510^3/ul Lymphocytes # 3.110^3/ul Monocytes # 0.810^3/ul Eosinophils # 0.310^3/ul Basophils # 0.010^3/ul Nucleated Red Blood Cells # 0.010^3/ul Urine Color YELLOW Urine Clarity SLIGHTLY CLOUDY Urine pH 8.0 Urine Specific [place] 1.018 Urine Ketones NEGATIVEmg/dL Urine Nitrite NEGATIVEmg/dL Urine Bilirubin NEGATIVEmg/dL Urine Urobilinogen NEGATIVEmg/dL Urine Leukocyte Esterase 3+Shobha/ul Urine Microscopic RBC 49/HPF Urine Microscopic WBC 80/HPF Urine Squamous Epithelial Cells FEW/HPF Urine Hemoglobin 2+mg/dL Urine Glucose NEGATIVEmg/dL Urine Total Protein NEGATIVEmg/dl Sodium Level 145mmol/L Potassium Level 4.2mmol/L Chloride Level 99mmol/L Carbon Dioxide Level 34mmol/L Anion Gap 16 Blood Urea Nitrogen 11mg/dl Creatinine 0.79mg/dl Glucose Level 104mg/dl Calcium Level 9.1mg/dl Total Bilirubin 0.0mg/dl Direct Bilirubin 0.00mg/dl Indirect Bilirubin 0.0mg/dl Aspartate Amino Transf (AST/SGOT) 35IU/L Alanine Aminotransferase (ALT/SGPT) 50IU/L Alkaline Phosphatase 129IU/L Total Protein 7.4g/dl Albumin 4.1g/dl Globulin 3.30g/dl Albumin/Globulin Ratio 1.24 Amylase Level 44U/L Lipase 56U/L Serum HCG, Qualitative NEGATIVE Current Medications Medications (Trade) Dose Ordered Sig/Nicholas Route PRN Reason Start Time Stop Time Status Last Admin Dose Admin Morphine Sulfate (morphine) 4 mg ONCE STAT IV 10/25/17 16:56 10/25/17 16:58 DC 10/25/17 17:24 Ondansetron HCl (Zofran Inj) 4 mg ONCE STAT IV 10/25/17 16:56 10/25/17 16:58 DC 10/25/17 17:23 IV Flush 10 ml 10 ml STK-MED ONCE .ROUTE 10/25/17 18:26 10/25/17 18:27 DC Sodium Chloride (NS) 100 ml @ ud STK-MED ONCE .ROUTE 10/25/17 18:26 10/25/17 18:27 DC Iohexol (Omnipaque 300mg/ ml) 150 ml STK-MED ONCE .ROUTE 10/25/17 18:26 10/25/17 18:27 DC Hydromorphone HCl (Dilaudid) 1 mg ONCE STAT IV 10/25/17 19:17 10/25/17 19:19 DC 10/25/17 19:23 Ceftriaxone Sodium 1 gm 1 gm ONCE ONCE IM 10/25/17 19:30 10/25/17 19:31 DC 10/25/17 19:52 Sodium Chloride (NS) 1,000 ml @ 1,000 mls/hr Q1H ONCE IV 10/25/17 19:30 10/25/17 20:29 DC 10/25/17 19:52 Hydromorphone HCl (Dilaudid) 1 mg ONCE STAT IV 10/25/17 21:09 10/25/17 21:10 DC 10/25/17 21:13 Procedures/MDM Serum : Negative. Blood works: Reviewed. Urinalysis: UTI. Treatment: IV insertion. Morphine 4 mg IV. Zofran 4 mg IV. Dilaudid IV. Ceftriaxone IV. Normal saline IV. With relief of symptoms. CT of the abdomen and pelvis with IV contrast: IMPRESSION: 1. Calcified granuloma in the lingula. Noncalcified 4 mm nodule in the posterobasal left lower lobe. Per the Fleischner Society, if the patient is at low risk, no further follow-up is needed. If the patient is at high risk, follow-up at 12 months is optional. 2. Hepatomegaly and hepatic steatosis. 3. Nonobstructing left nephrolithiasis. No hydronephrosis. 4. Nonspecific inflammatory change within the pelvis adjacent to the distal sigmoid colon near the rectosigmoid junction. No bowel wall thickening or diverticulosis to suggest diverticulitis. Pelvic ultrasound can be performed for further evaluation. 5. Nonspecific periaortic adenopathy with a dominant node measuring 11 mm in short axis. Nonspecific prominent bilateral obturator lymph nodes measuring up to 6 mm. 6. Nonspecific infiltration of the supraumbilical subcutaneous fat with no subcutaneous emphysema or focal drainable collection. Correlate clinically for cellulitis. 7. Small fat containing umbilical hernia. Case and diagnostic test results was discussed with supervising physician, Dr. Aguila Shetty who said for me to give ceftriaxone IV, then discharge the patient with antibiotics and pain medicine and have her follow-up with her primary care physician. Differential diagnosis: Appendicitis versus cholecystitis versus pancreatitis versus diverticulitis versus diverticulosis versus abscess formation versus sepsis versus nephrolithiasis versus pyelonephritis versus urinary tract infection versus abdominal pain. I have low suspicion for appendicitis, cholecystitis, pancreatitis, diverticulitis, abscess formation, pyelonephritis due to diagnostic test results. Case was also discussed with supervising emergency room physician, Dr. Yoni Willard who also agreed with my medical decision making. Final diagnosis: Urinary tract infection. Non-obstructing kidney stones. Prescription: Keflex. Lillian. Motrin. Follow-up with PCP in the next 24-48 hours. Come back here in the emergency department for any new symptoms or any worsening symptoms. All questions and concerns are answered. Patient and family member verbalized understanding and agreed with the plan of care. Hemodynamically stable on discharge. Departure Diagnosis: Primary Impression: UTI (urinary tract infection) Additional Impression: Kidney stone on left side Condition: Stable Additional Instructions: Follow-up with PCP in the next 24-48 hours. PCP to refer patient to a urologist in the next 24-48 hours. Come back here in the emergency department for any new symptoms or any worsening symptoms. All questions and concerns are answered. Patient and family member verbalized understanding and agreed with the plan of care. NICCI BEASLEY Oct 25, 2017 17:03
[2017-10-25 17:56] LABS: BASOPHILS % 0.2 % (0.0-2.0); EOSINOPHILS # 0.3 10^3/ul (0.0-0.5); EOSINOPHILS % 2.6 % (0.0-7.0); HEMATOCRIT 36.4 % (37.0-47.0); HEMOGLOBIN 11.2 g/dl (12.0-16.0); LYMPHOCYTES # 3.1 10^3/ul (0.8-2.9); MEAN CORPUSCULAR HEMOGLOBIN 26.1 pg (29.0-33.0); MEAN CORPUSCULAR HGB CONC 30.8 g/dl (32.0-37.0); MEAN CORPUSCULAR VOLUME 84.8 fl (82.0-101.0); MEAN PLATELET VOLUME 9.6 fl (7.4-10.4); MONOCYTE # 0.8 10^3/ul (0.3-0.9); MONOCYTES % 7.4 % (0.0-11.0); NEUTROPHIL # 6.5 10^3/ul (1.6-7.5); NEUTROPHILS % 60.1 % (39.0-77.0); PLATELET COUNT 341 10^3/UL (140-415); RED BLOOD COUNT 4.29 10^6/ul (4.20-5.40); RED CELL DISTRIBUTION WIDTH 14.6 % (11.5-14.5); WHITE BLOOD COUNT 10.8 10^3/ul (4.8-10.8)
[2017-10-25 18:01] LABS: ADD UMIC YES; UR ASCORBIC ACID NEGATIVE (NEGATIVE); UR BILIRUBIN (Dip) NEGATIVE (NEGATIVE); UR BLOOD (Dip) 2+ mg/dL (NEGATIVE); UR CLARITY SLIGHTLY CLOUDY (CLEAR); UR COLOR YELLOW (YELLOW); UR GLUCOSE (Dip) NEGATIVE (NEGATIVE); UR KETONES (Dip) NEGATIVE (NEGATIVE); UR LEUKOCYTE ESTERASE (Dip) 3+ Leu/ul (NEGATIVE); UR NITRITE (Dip) NEGATIVE (NEGATIVE); UR RBC 49 /HPF (0-5); UR SPECIFIC GRAVITY (Dip) 1.018 (1.003-1.030); UR SQUAMOUS EPITHELIAL CELL FEW /HPF (FEW); UR TOTAL PROTEIN (Dip) NEGATIVE (NEGATIVE); UR UROBILINOGEN (Dip) NEGATIVE (NEGATIVE)
[2017-10-25 18:16] LABS: ALBUMIN 4.1 g/dl (3.3-4.9); ALBUMIN/GLOBULIN RATIO 1.24; CALCIUM 9.1 mg/dl (8.4-10.2); CREATININE 0.79 mg/dl (0.44-1.00); POTASSIUM 4.2 mmol/L (3.5-5.1); TOTAL PROTEIN 7.4 g/dl (6.1-8.1)
[2017-10-25] MEDS ORDERED: SOD CHLORIDE 0.9% 100 ML ONE (18:26)
[2017-10-25] MEDS ORDERED: IOHEXOL 300MG/ML 150 ML BTL ONE (18:26)
--- NOTE | 2017-10-25 19:04 | RADRPT ---
PROCEDURE: CT abdomen and pelvis with contrast. CLINICAL INDICATION: Abdominal pain. Pelvic pain radiating to the back. TECHNIQUE: CT scan of the abdomen and pelvis with contrast was performed after the uneventful intrav enous administration of 100 cc of Omnipaque-300. Coronal and sagittal reformatted images were obtain ed from the axial source images. The total exam CTDI equals 23.71 mGy and the total exam DLP equals 1443.15 mGy-cm. DICOM images are available. One or more of the following dose reduction techniques were used: - Automated exposure control. - Adjustment of the mA and/or kV according to patient size. - Use of iterative reconstruction technique. COMPARISON: None available. FINDINGS: Visualized lower thorax: There is a calcified nodule in the lingula and a noncalcified 4 mm nodule in the posterobasal left lower lobe. The visualized lung bases are otherwise clear. The visualized h eart is unremarkable. Hepatobiliary system and spleen: There is diffuse fatty infiltration of the liver, which is enlarge d measuring 22 cm in length. No focal hepatic lesion is identified. There is no intra or extrahepati c biliary ductal dilatation. The gallbladder is unremarkable. The spleen is unremarkable. The pancre as is unremarkable. Adrenal glands and genitourinary system: The adrenal glands are unremarkable. There is a nonobstruc ting 3 mm stone at the lower pole of the left kidney. There are no renal masses or hydronephrosis. T he urinary bladder is unremarkable. The uterus is surgically absent. There are no adnexal masses. Gastrointestinal system: There is no bowel wall thickening or evidence of obstruction. The appendix is surgically absent. Peritoneum, vascular system, lymphatics: There is no free intraperitoneal air or free fluid. There is nonspecific inflammatory change within the pelvis adjacent to the distal sigmoid colon near the r ectosigmoid junction. There are prominent bilateral obturator lymph nodes with a dominant node measu ring 6 mm in short axis. There is periaortic adenopathy with a dominant node measuring 11 mm in shor t axis. The aorta is nonaneurysmal. There is a small fat containing umbilical hernia. Musculoskeletal system and soft tissues: There is mild to moderate multilevel degenerative enthesop athy. There are no concerning osseous lesions. There is nonspecific infiltration of the supraumbilic al subcutaneous fat with no subcutaneous emphysema or focal drainable collection. IMPRESSION: 1. Calcified granuloma in the lingula. Noncalcified 4 mm nodule in the posterobasal left lower lobe . Per the Fleischner Society, if the patient is at low risk, no further follow-up is needed. If t he patient is at high risk, follow-up at 12 months is optional. 2. Hepatomegaly and hepatic steatosis. 3. Nonobstructing left nephrolithiasis. No hydronephrosis. 4. Nonspecific inflammatory change within the pelvis adjacent to the distal sigmoid colon near the rectosigmoid junction. No bowel wall thickening or diverticulosis to suggest diverticulitis. Pelvic ultrasound can be performed for further evaluation. 5. Nonspecific periaortic adenopathy with a dominant node measuring 11 mm in short axis. Nonspecifi c prominent bilateral obturator lymph nodes measuring up to 6 mm. 6. Nonspecific infiltration of the supraumbilical subcutaneous fat with no subcutaneous emphysema o r focal drainable collection. Correlate clinically for cellulitis. 7. Small fat containing umbilical hernia. RPTAT: HLBP .Juan José Govea MD, Date Time Electronically viewed and signed by .Juan José Govea MD, on 10/25/2017 19:04 .P/
[2017-10-25] MEDS ORDERED: HYDROmorphONE 1 MG/ML SYG IV STA ×2 (19:17→21:09)
[2017-10-25 19:27] VITALS: BP 136/63
[2017-10-25] MEDS ORDERED: CEFTRIAXONE 1 GM INJ IM ONE (19:30)
[2017-10-25] MEDS ORDERED: SOD CHLORIDE 0.9% 1,000 ML IV ONE (19:30)
[2017-10-25] MEDS ORDERED: CEPH-443 PO (21:06)
[2017-10-25] MEDS ORDERED: IBUP800T25 PO (21:06)
[2017-10-25] MEDS ORDERED: TRAM50TA2 PO (21:07)
[2017-10-25] MEDS ORDERED: OXYC-209 PO (21:26)
== END 2017-10-25 21:44 | disposition home or self-care (01) ==
LOC: FTE 16:04
DX: N39.0 Urinary tract infection, site not specified (principal); N20.0 Calculus of kidney; J45.909 Unspecified asthma, uncomplicated; I10 Essential (primary) hypertension; E66.9 Obesity, unspecified; Z68.42 Body mass index [BMI] 45.0-49.9, adult
CPT/HCPCS: 36415; 74177; 80053; 81001; 82150; 83690; 84703; 85025; 87086; 96372; 96374; 96375; 96376; J0696; J1170; J2270; J2405; J7030; Q9967; Z7502; Z7610